=== PATIENT | male | born 1985 | race Two or more races ===

== ENCOUNTER 2017-08-22 02:43 | Emergency (ER) | payer SELFPAY ==
[~2017-08-22] VITALS: Ht 177.8 cm; Wt 91.0 kg
[2017-08-22] MEDS ORDERED: TETANUS, DIPHTHERIA, PERTUSSIS VAC/PF 0.5ML (>7YR OLD) IM ONE (03:15)
[2017-08-22 04:54] VITALS: BP 115/70
== END 2017-08-22 04:57 | disposition home or self-care (01) ==
LOC: ER 02:43
DX: S01.01XA Laceration without foreign body of scalp, initial encounter (principal); F10.129 Alcohol abuse with intoxication, unspecified; W18.30XA Fall on same level, unspecified, initial encounter; Y93.89 Activity, other specified; Y92.89 Other specified places as the place of occurrence of the external cause; Y99.8 Other external cause status; Z23 Encounter for immunization
CPT/HCPCS: 12002; 70450; 90471; 90715; 99284